=== PATIENT | female | born 1975 | race Caucasian/White ===

== ENCOUNTER 2021-08-19 17:18 | Observation (INO) | payer BC, OTHER ==
[2021-08-19] MEDS ORDERED: ACETAMINOPHEN 1000 MG/100 ML VIAL IVPB ONE (17:49)
[2021-08-19] MEDS ORDERED: SODIUM CHLORIDE 0.9% 500 ML INFUS.BAG IV ONE (18:01)
[2021-08-19] MEDS ORDERED: ACETAMINOPHEN INJECTION 100 ML IVPB ONE (18:06)
[2021-08-19 18:28] LABS: BASO % 0.3 % (0-2.0); HEMATOCRIT 35.3 % (32.4-45.2); HEMOGLOBIN 11.4 GM/dL (10.7-15.3); MCH 28.3 pg (25.7-33.7); MCHC 32.3 g/dl (32.0-36.0); MEAN CELL VOLUME 87.7 fl (80-96); MEAN PLT VOLUME 7.4 fl (7.5-11.1); MONO % 7.6 % (3.8-10.2); NEUT % 59.1 % (42.8-82.8); PLATELET COUNT 230 10^3/uL (134-434); RBC 4.02 M/mm3 (3.60-5.2); RDW 15.8 % (11.6-15.6)
[2021-08-19 18:54] LABS: CHLORIDE 106 mmol/L (98-107); SODIUM 139 mmol/L (136-145)
[2021-08-19 18:56] LABS: ALBUMIN 3.4 g/dl (3.4-5.0); ANION GAP 8 MMOL/L (8-16); CALCIUM 8.7 mg/dL (8.5-10.1); CO2 26 mmol/L (21-32); GLUCOSE,RANDOM 97 mg/dL (74-106)
[2021-08-19 18:59] LABS: SGOT/AST 23 U/L (15-37); SGPT/ALT 21 U/L (13-61)
[2021-08-19 19:00] LABS: CREATININE 0.8 mg/dL (0.55-1.3)
[2021-08-19 19:01] LABS: BILIRUBIN,TOTAL 0.2 mg/dL (0.2-1); TOT PROT 6.7 g/dl (6.4-8.2)
[2021-08-19 19:02] LABS: ALK PHOS 50 U/L (45-117)
[2021-08-19] MEDS ORDERED: POTASSIUM CHLORIDE TABS 20 MEQ TABLET.ER (FP) PO ONE ×2 (19:03→19:05)
[2021-08-19] MEDS ORDERED: METOCLOPRAMIDE HCL INJECTION 10 MG/2 ML VIAL IVPUSH ONE (19:31)
[2021-08-19] MEDS ORDERED: METOCLOPRAMIDE HCL INJECTION 10 MG/2 ML VIAL ONE (19:34)
[2021-08-19 22:17] LABS: MAGNESIUM 2.1 mg/dL (1.8-2.4)
[2021-08-20 02:05] VITALS: BMI 20.7
[2021-08-20] MEDS ORDERED: ACETAMINOPHEN 500 MG TABLET (FP) PO ONE (07:45)
[2021-08-20 07:50] LABS: BASO % 0.6 % (0-2.0); EOS % 1.5 % (0-4.5); HEMATOCRIT 31.4 % (32.4-45.2); HEMOGLOBIN 10.3 GM/dL (10.7-15.3); LYMPH % 46.6 % (8-40); MCH 28.7 pg (25.7-33.7); MCHC 32.8 g/dl (32.0-36.0); MEAN CELL VOLUME 87.4 fl (80-96); MEAN PLT VOLUME 7.6 fl (7.5-11.1); MONO % 8.2 % (3.8-10.2); NEUT % 43.1 % (42.8-82.8); PLATELET COUNT 210 10^3/uL (134-434); RBC 3.59 M/mm3 (3.60-5.2); RDW 15.7 % (11.6-15.6); WHITE BLOOD COUNT 3.5 K/mm3 (4.0-10.0)
[2021-08-20 08:01] LABS: BLOOD UREA NITROGEN 9.6 mg/dL (7-18); CALCIUM 7.9 mg/dL (8.5-10.1); MAGNESIUM 2.1 mg/dL (1.8-2.4)
[2021-08-20 08:04] LABS: CREATININE 0.7 mg/dL (0.55-1.3)
[2021-08-20 08:13] LABS: CHOLESTEROL 143 mg/dL (50-200); TRIGLYCERIDES 60 mg/dL (0-150)
[2021-08-20 08:14] LABS: LDL CHOLESTEROL (ONLY SJRH) 79 mg/dL (5-100)
[2021-08-20 08:16] LABS: HDL CHOLESTEROL 53 mg/dL (40-60)
[2021-08-20] MEDS: ENOXAPARIN NA (PORCINE) 40 MG/0.4 ML DISP.SYRIN SQ SCH (10:12)
[2021-08-20] MEDS ORDERED: ACETAMINOPHEN 325 MG TABLET (FP) PO ONE (16:59)
[2021-08-21 08:03] LABS: BLOOD UREA NITROGEN 8.3 mg/dL (7-18)
[2021-08-21 08:06] LABS: CREATININE 0.8 mg/dL (0.55-1.3)
[2021-08-21] MEDS: ENOXAPARIN NA (PORCINE) 40 MG/0.4 ML DISP.SYRIN SQ SCH (09:43)
[2021-08-21] MEDS ORDERED: ACETAMINOPHEN 325 MG TABLET (FP) PO ONE (09:53)
[2021-08-21 15:17] VITALS: BP 90/51; PULSE 70; TEMP 98.2
== END 2021-08-21 17:56 | disposition home or self-care (01) ==
LOC: JER 17:18 → JERBED 19:58 → J4W 08-20 01:25
PROVIDERS: ADMIT Internal Medicine
PROC: 3E033NZ Introduction of Analgesics, Hypnotics, Sedatives into Peripheral Vein, Percutaneous Approach (ICD-10-PCS; principal; 2021-08-19)
PROC: 3E023GC Introduction of Other Therapeutic Substance into Muscle, Percutaneous Approach (ICD-10-PCS; 2021-08-19)
PROC: 3E033GC Introduction of Other Therapeutic Substance into Peripheral Vein, Percutaneous Approach (ICD-10-PCS; 2021-08-19)
PROC: 3E0337Z Introduction of Electrolytic and Water Balance Substance into Peripheral Vein, Percutaneous Approach (ICD-10-PCS; 2021-08-19)
DX: R55 Syncope and collapse (principal); F55.2 Abuse of laxatives; I95.9 Hypotension, unspecified; E78.5 Hyperlipidemia, unspecified; E87.6 Hypokalemia; R42 Dizziness and giddiness; D50.9 Iron deficiency anemia, unspecified; Z29.9 Encounter for prophylactic measures, unspecified
CPT/HCPCS: 36415; 70450-TC; 71046-TC-FY; 72100-TC-FY; 72125-TC; 80048; 80053; 80061; 82550; 83735; 84100; 84443; 84484; 84703; 85025; 93005; 93010; 93306-TC; 93880-TC; 96372; 96374; 96375; 99285-25; C9803; G0378; J0131; U0003; U0005

== ENCOUNTER 2024-11-29 07:55 | Observation (INO) | payer BC, OTHER ==
[2024-11-29 09:09] LABS: INR 1.1 (0.83-1.09); PROTHROMBIN TIME (PATIENT) 12.1 SEC (9.7-13.0)
[2024-11-29 09:12] LABS: ACTIVATED PTT 27.9 SECONDS (25.2-36.5); HEMATOCRIT 25.3 % (32.4-45.2); HEMOGLOBIN 7.1 GM/dL (10.7-15.3); MCH 17.9 pg (25.7-33.7); MCHC 28.1 g/dl (32.0-36.0); MEAN CELL VOLUME 63.7 fl (80-96); MEAN PLT VOLUME 8.1 fl (7.5-11.1); PLATELET COUNT 266 10^3/uL (134-434); RBC 3.97 M/mm3 (3.60-5.2); RDW 17.9 % (11.6-15.6); WHITE BLOOD COUNT 6.2 K/mm3 (4.0-10.0)
[2024-11-29 09:13] LABS: ADD RBC MORPHOLOGY YES
[2024-11-29 09:21] LABS: CHLORIDE 107 mmol/L (98-107); SODIUM 138 mmol/L (136-145)
[2024-11-29 09:23] LABS: CALCIUM 7.9 mg/dL (8.5-10.1)
[2024-11-29 09:24] LABS: ALBUMIN 3.1 g/dl (3.4-5.0); CO2 24 mmol/L (21-32); GLUCOSE,RANDOM 97 mg/dL (74-106)
[2024-11-29 09:27] LABS: CREATININE 0.8 mg/dL (0.55-1.3); SGOT/AST 20 U/L (15-37); SGPT/ALT 18 U/L (13-61)
[2024-11-29 09:28] LABS: BILIRUBIN,TOTAL 0.3 mg/dL (0.2-1); TOT PROT 6.2 g/dl (6.4-8.2)
[2024-11-29 09:30] LABS: ALK PHOS 45 U/L (45-117)
[2024-11-29 09:47] LABS: ANISOCYTOSIS 2+; MACROCYTOSIS 0; TEAR DROP CELLS 1+
[2024-11-29 09:48] LABS: ANION GAP 7 mmol/L (4-13); POTASSIUM 2.9 mmol/L (3.5-5.1)
[2024-11-29] MEDS: POTASSIUM CHLORIDE ORAL LIQUID 20 MEQ/15 ML PO ONE (10:46)
[2024-11-29] MEDS ORDERED: POTASSIUM CHLORIDE TABS 20 MEQ TABLET.ER (FP) PO ONE (10:54)
[2024-11-29] MEDS: POTASSIUM CHLORIDE TABS 10 MEQ TABLET.ER (FP) PO ONE (10:58)
[2024-11-29] MEDS ORDERED: ACETAMINOPHEN INJECTION 100 ML ONE (11:21)
[2024-11-29] MEDS: ACETAMINOPHEN 1000 MG/100 ML BAG IVPB ONE (11:25)
[2024-11-29] MEDS ORDERED: KCL 10 MEQ IVPB 10 MEQ/100 ML INFUS.BAG IVPB ONE ×2 (11:46→12:33)
[2024-11-29] MEDS: KCL 10 MEQ IVPB 10 MEQ/100 ML INFUS.BAG IVPB SCH ×2 (12:10→17:49)
[2024-11-29] MEDS: SODIUM CHLORIDE 0.9% 500 ML INFUS.BAG IV ONE (14:25)
[2024-11-29] MEDS: SODIUM CHLORIDE 1,000 ML IV STA (15:00)
[2024-11-29] MEDS ORDERED: cefTRIAXone SODIUM 1 GM VIAL ONE (15:11)
[2024-11-29] MEDS: CEFTRIAXONE 1 GM in DEXTROSE 5%-WATER - 50 ML IVPB ONE (15:15)
[2024-11-29 15:44] LABS: IRON SERUM 10 ug/dL (50-175); TOTAL IRON BINDING CAPACITY 378 ug/dL (250-450)
[2024-11-29 20:43] LABS: POTASSIUM 3.7 mmol/L (3.5-5.1)
[2024-11-29 20:46] LABS: CALCIUM 7.6 mg/dL (8.5-10.1)
[2024-11-29 20:47] LABS: ALBUMIN 2.8 g/dl (3.4-5.0); BLOOD UREA NITROGEN 7.9 mg/dL (7-18)
[2024-11-29 20:50] LABS: CREATININE 0.7 mg/dL (0.55-1.3)
[2024-11-29 20:51] LABS: BILIRUBIN,TOTAL 0.6 mg/dL (0.2-1); TOT PROT 5.8 g/dl (6.4-8.2)
[2024-11-29 22:04] LABS: BASO % 0.4 % (0-2.0); EOS % 0.1 % (0-4.5); HEMOGLOBIN 7.6 GM/dL (10.7-15.3); LYMPH % 12.9 % (8-40); MCH 19.3 pg (25.7-33.7); MCHC 28.4 g/dl (32.0-36.0); MEAN PLT VOLUME 8.9 fl (7.5-11.1); MONO % 3.9 % (3.8-10.2); NEUT % 82.7 % (42.8-82.8); PLATELET COUNT 226 10^3/uL (134-434); RBC 3.95 M/mm3 (3.60-5.2); RDW 20.4 % (11.6-15.6); WHITE BLOOD COUNT 7.3 K/mm3 (4.0-10.0)
[2024-11-29 22:05] LABS: ADD RBC MORPHOLOGY YES; HEMATOCRIT 26.9 % (32.4-45.2)
[2024-11-30] MEDS: ACETAMINOPHEN 1000 MG/100 ML BAG IVPB PRN (02:49)
[2024-11-30] MEDS: LACTATED RINGERS SOLUTION 1,000 ML/1,000 ML INFUS.BAG IV STA (02:51)
[2024-11-30 08:43] LABS: HEMATOCRIT 24.8 % (32.4-45.2); MCHC 28.5 g/dl (32.0-36.0); MEAN CELL VOLUME 67.9 fl (80-96); MEAN PLT VOLUME 8.8 fl (7.5-11.1); PLATELET COUNT 205 10^3/uL (134-434); RBC 3.65 M/mm3 (3.60-5.2); RDW 19.8 % (11.6-15.6); WHITE BLOOD COUNT 6.9 K/mm3 (4.0-10.0)
[2024-11-30 08:45] LABS: MCH 19.3 pg (25.7-33.7)
[2024-11-30 09:06] LABS: BLOOD UREA NITROGEN 6.6 mg/dL (7-18); CALCIUM 7.6 mg/dL (8.5-10.1); MAGNESIUM 1.6 mg/dL (1.8-2.4)
[2024-11-30 09:08] LABS: ALBUMIN 2.6 g/dl (3.4-5.0)
[2024-11-30 09:10] LABS: CREATININE 0.7 mg/dL (0.55-1.3); PHOSPHOROUS 1.9 mg/dL (2.5-4.9)
[2024-11-30 09:11] LABS: BILIRUBIN,TOTAL 0.3 mg/dL (0.2-1); TOT PROT 5.4 g/dl (6.4-8.2)
[2024-11-30] MEDS ORDERED: CEFTRIAXONE 1 G/50 ML PREMIX 50 ML IVPB SCH (10:00)
[2024-11-30] MEDS: ENOXAPARIN NA (PORCINE) 40 MG/0.4 ML DISP.SYRIN SQ SCH (10:49)
[2024-11-30] MEDS: SODIUM CHLORIDE 250 ML IV STA (10:52)
[2024-11-30] MEDS: SODIUM CHLORIDE 1,000 ML IV SCH (10:54)
[2024-11-30] MEDS: POTASSIUM PHOSPHATE 30 MM in SODIUM CHLORIDE 500 ML IVPB ONE (12:23)
[2024-11-30] MEDS: IRON SUCROSE INJECTION 200 MG in SODIUM CHLORIDE 100 ML IVPB ONE (13:49)
[2024-11-30 19:11] LABS: POTASSIUM 3.3 mmol/L (3.5-5.1)
[2024-11-30 19:14] LABS: CALCIUM 7.4 mg/dL (8.5-10.1)
[2024-11-30 19:15] LABS: ALBUMIN 2.7 g/dl (3.4-5.0)
[2024-11-30 19:18] LABS: CREATININE 0.6 mg/dL (0.55-1.3)
[2024-11-30 19:19] LABS: BILIRUBIN,TOTAL 0.3 mg/dL (0.2-1); TOT PROT 5.8 g/dl (6.4-8.2)
[2024-11-30 19:53] LABS: BASO % 0.6 % (0-2.0); EOS % 0.7 % (0-4.5); HEMATOCRIT 25.8 % (32.4-45.2); HEMOGLOBIN 7.3 GM/dL (10.7-15.3); LYMPH % 16.9 % (8-40); MCH 19.1 pg (25.7-33.7); MCHC 28.5 g/dl (32.0-36.0); MEAN CELL VOLUME 67.1 fl (80-96); NEUT % 77.8 % (42.8-82.8); PLATELET COUNT 214 10^3/uL (134-434); RBC 3.85 M/mm3 (3.60-5.2); RDW 19.7 % (11.6-15.6); WHITE BLOOD COUNT 5.8 K/mm3 (4.0-10.0)
[2024-11-30] MEDS: MAGNESIUM 2GM/50ML STERILE WATER IVPB IVPB ONE (21:27)
[2024-12-01 08:29] LABS: MAGNESIUM 2.3 mg/dL (1.8-2.4)
[2024-12-01 08:33] LABS: PHOSPHOROUS 2.4 mg/dL (2.5-4.9)
[2024-12-01] MEDS: CEFTRIAXONE 1 G/50 ML PREMIX 50 ML IVPB SCH (09:51)
[2024-12-01] MEDS: IRON SUCROSE INJECTION 200 MG in SODIUM CHLORIDE 100 ML IVPB ONE (11:16)
[2024-12-01 20:13] LABS: CHLORIDE 112 mmol/L (98-107); POTASSIUM 3.8 mmol/L (3.5-5.1); SODIUM 142 mmol/L (136-145)
[2024-12-01 20:16] LABS: ALBUMIN 2.7 g/dl (3.4-5.0); ANION GAP 8 mmol/L (4-13); BLOOD UREA NITROGEN 6.7 mg/dL (7-18); CO2 22 mmol/L (21-32); GLUCOSE,RANDOM 110 mg/dL (74-106)
[2024-12-01 20:19] LABS: SGOT/AST 16 U/L (15-37); SGPT/ALT 14 U/L (13-61)
[2024-12-01 20:20] LABS: CREATININE 0.7 mg/dL (0.55-1.3)
[2024-12-01 20:21] LABS: BILIRUBIN,TOTAL < 0.1 mg/dL (0.2-1); TOT PROT 5.8 g/dl (6.4-8.2)
[2024-12-01 20:22] LABS: ALK PHOS 48 U/L (45-117)
[2024-12-02 08:27] LABS: BASO % 0.4 % (0-2.0); EOS % 1.2 % (0-4.5); HEMATOCRIT 27.7 % (32.4-45.2); LYMPH % 18.4 % (8-40); MCHC 28.7 g/dl (32.0-36.0); MEAN CELL VOLUME 67.8 fl (80-96); MEAN PLT VOLUME 9.1 fl (7.5-11.1); MONO % 5.8 % (3.8-10.2); NEUT % 74.2 % (42.8-82.8); PLATELET COUNT 229 10^3/uL (134-434); RBC 4.08 M/mm3 (3.60-5.2)
[2024-12-02 08:29] LABS: MCH 19.5 pg (25.7-33.7)
[2024-12-02 09:54] VITALS: BMI 22.8
[2024-12-02 10:42] LABS: ANISOCYTOSIS 2+; MACROCYTOSIS 0; OVALOCYTE 1+
[2024-12-02] MEDS: LOPERAMIDE HCL 2 MG CAPSULE PO PRN (11:57)
[2024-12-02] MEDS: THIAMINE HCL 200 MG/2 ML VIAL IVPB SCH (12:43)
[2024-12-03] MEDS: ACETAMINOPHEN 500 MG TABLET (FP) PO PRN (10:00)
[2024-12-03] MEDS: ENOXAPARIN NA (PORCINE) 40 MG/0.4 ML DISP.SYRIN SQ SCH (10:03)
[2024-12-03] MEDS: CEFTRIAXONE 1 G/50 ML PREMIX 50 ML IVPB SCH (10:03)
[2024-12-03 14:26] VITALS: BP 92/59; PULSE 82; RESP 16; TEMP 98.9
== END 2024-12-03 15:17 | disposition home or self-care (01) ==
LOC: JER 07:55 → JERBED 13:00 → UNDOADMOB 13:00 → INTOOBSV 13:00 → JERBED 14:20 → J4W 16:49 → J7W 12-02 14:21
PROVIDERS: ADMIT Internal Medicine; ATTEND Student in an Organized Health Care Education/Training Program
PROC: 30243N1 Transfusion of Nonautologous Red Blood Cells into Central Vein, Percutaneous Approach (ICD-10-PCS; principal; 2024-11-29)
PROC: 3E033GC Introduction of Other Therapeutic Substance into Peripheral Vein, Percutaneous Approach (ICD-10-PCS; 2024-11-29)
PROC: 3E03329 Introduction of Other Anti-infective into Peripheral Vein, Percutaneous Approach (ICD-10-PCS; 2024-11-29)
PROC: 3E033NZ Introduction of Analgesics, Hypnotics, Sedatives into Peripheral Vein, Percutaneous Approach (ICD-10-PCS; 2024-11-29)
PROC: 3E0337Z Introduction of Electrolytic and Water Balance Substance into Peripheral Vein, Percutaneous Approach (ICD-10-PCS; 2024-11-29)
PROC: 3E013GC Introduction of Other Therapeutic Substance into Subcutaneous Tissue, Percutaneous Approach (ICD-10-PCS; 2024-11-29)
DX: R55 Syncope and collapse (principal); D50.9 Iron deficiency anemia, unspecified; E87.6 Hypokalemia; N39.0 Urinary tract infection, site not specified; E88.3 Tumor lysis syndrome; E83.42 Hypomagnesemia; R19.7 Diarrhea, unspecified; A41.9 Sepsis, unspecified organism; I10 Essential (primary) hypertension; E78.5 Hyperlipidemia, unspecified; I80.8 Phlebitis and thrombophlebitis of other sites; A08.4 Viral intestinal infection, unspecified
CPT/HCPCS: 0241U-QW; 36415; 36430; 71045-TC-FY; 80053; 82272; 82728; 83540; 83550; 83605; 83735; 84100; 84484; 84703; 85025; 85027; 85610; 85730; 86850; 86900; 86901; 86922; 87040; 87045; 87046; 93005; 93010; 93306-TC; 93971; 99285-25; G0378; J0131; J1756; P9058